=== PATIENT | female | born 1985 | race Caucasian/White ===

== ENCOUNTER 2022-08-13 08:09 | Outpatient (CLI) | payer BC, SELFPAY ==
--- NOTE | 2022-08-13 08:15 | CRLHL7_ITS ---
For Patients: As a result of the Century Cures Act, medical imaging exams and procedure reports are released immediately into your electronic medical record. You may view this report before your referring provider. If you have questions, please contact your health care provider. HISTORY: Ankylosing spondylitis. TECHNIQUE: Noncontrast MRI of the pelvis. COMPARISON: No prior. FINDINGS: Hip joints: No hip joint effusion on either side. The articular surfaces are maintained. No erosions. No capsular edema. - Sacroiliac joints: There is arthrosis of the sacroiliac joints inferiorly with areas of subchondral bone marrow edema and relative widening of the joint spaces which relates to chronic erosive change. There is also some periarticular increased fatty marrow noted on the coronal T1 images. Findings are compatible with chronic sacroiliitis. Changes are noted on axial STIR image 1, series 5 and coronal STIR image 28, series 3. - Osseous structures: No fracture or avascular necrosis. - Musculotendinous structures and bursae: Distal gluteal tendons are intact. No trochanteric bursal fluid collection. Common hamstring tendons are intact. Distal iliopsoas tendons are intact. - Other findings: Mild arthrosis of the pubic symphysis. - Intrapelvic soft tissues: No deep pelvic fluid collection. There are cervical nabothian cysts. No inguinal hernia. IMPRESSION: 1. Bilateral chronic sacroiliitis. 2. Hip joint spaces maintained. 3. No tendon tearing nor bursitis. Dictated by Tc Bryan MD @ 08/14/2022 2:00:46 PM (Electronically Signed)
--- NOTE | 2022-08-13 09:15 | CRLHL7_ITS ---
For Patients: As a result of the Century Cures Act, medical imaging exams and procedure reports are released immediately into your electronic medical record. You may view this report before your referring provider. If you have questions, please contact your health care provider. Indication: Ankylosing spondylitis. Technique: MRI of the cervical spine was performed without the use of intravenous contrast. Comparison: None relevant available. Findings: The vertebral body heights appear maintained without evidence of fracture. No discrete T1 hypointense marrow infiltrating process. The disc space heights appear preserved. Mild reversal to the cervical lordosis. No abnormal cord signal. C2-3: No spinal canal or neural foraminal narrowing. C3-4: No spinal canal or neural foraminal narrowing. C4-5: No spinal canal or neural foraminal narrowing. C5-6: No spinal canal or neural foraminal narrowing. C6-7: Minimal disc bulge without spinal canal or neural foraminal narrowing. C7-T1: No spinal canal or neural foraminal narrowing. Impression: 1. No spinal canal or neural foraminal narrowing. 2. No abnormal cord signal. 3. Mild reversal to the cervical lordosis. Dictated by Jesse Crowell MD @ 08/13/2022 3:31:09 PM (Electronically Signed)
--- NOTE | 2022-08-13 09:15 | CRLHL7_ITS ---
For Patients: As a result of the Century Cures Act, medical imaging exams and procedure reports are released immediately into your electronic medical record. You may view this report before your referring provider. If you have questions, please contact your health care provider. Indication: An closing spondylitis. Technique: Multiplanar, multisequence MRI of the lumbar spine was performed without intravenous contrast. Comparison: None relevant available. Findings: There are 5 lumbar type vertebral segments identified. The vertebral body heights are maintained without evidence of fracture. There is no discrete T1 hypointense marrow infiltrating process. The conus medullaris terminates at T12-L1, normal. Cauda equina appears unremarkable. T12-L1: No spinal canal or neural foraminal stenosis. L1-2: No spinal canal or neural foraminal stenosis. L2-3: No spinal canal or neural foraminal stenosis. L3-4: No spinal canal or neural foraminal stenosis. L4-5: No spinal canal or neural foraminal stenosis. L5-S1: Small right subarticular disc protrusion with annular fissure. Protrusion slightly abuts without compressing the descending right S1 nerve. No neural foraminal narrowing. Impression: At L5-S1, small right subarticular disc protrusion slightly abutting without compressing the descending right S1 nerve. Dictated by Jesse Crowell MD @ 08/13/2022 3:36:03 PM (Electronically Signed)
== END 2022-08-13 08:10 | disposition home or self-care (01) ==
PROVIDERS: PCP Physician Assistant Medical; Visit Provider Internal Medicine Rheumatology
DX: M45.9 Ankylosing spondylitis of unspecified sites in spine (principal); M46.1 Sacroiliitis, not elsewhere classified
CPT/HCPCS: 72141; 72148; 72195

== ENCOUNTER 2022-09-23 15:11 | Outpatient (CLI) | payer BC, SELFPAY ==
--- NOTE | 2022-09-23 15:30 | CRLHL7_ITS ---
For Patients: As a result of the Century Cures Act, medical imaging exams and procedure reports are released immediately into your electronic medical record. You may view this report before your referring provider. If you have questions, please contact your health care provider. INDICATION: Ankylosing spondylitis of multiple sites of the spine. TECHNIQUE: Noncontrast sagittal T1, T2, STIR and axial GRE sequences are provided. No comparisons. FINDINGS: The overall stature, alignment and intrinsic marrow signal of the thoracic spine is within normal limits. Thoracic cord is normal. At T7-8, posterior central disc protrusion extends 5 millimeters beyond the posterior vertebral body margin contacting the ventral cord resulting in no central canal or foraminal narrowing. No other suspicious disc bulges or protrusions. No suspicious central canal or foraminal narrowing. No convincing evidence flowing syndesmophytes seen. IMPRESSION: 1. 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 Dictated by Spedey Brown MD @ 09/23/2022 5:37:51 PM Dictated by: Speedy Brown MD @ 09/23/2022 17:37:56 (Electronically Signed)
== END 2022-09-23 15:12 | disposition home or self-care (01) ==
LOC: MRI 15:12
PROVIDERS: PCP Physician Assistant Medical; Visit Provider Internal Medicine Rheumatology
DX: M45.0 Ankylosing spondylitis of multiple sites in spine (principal); M51.34 Other intervertebral disc degeneration, thoracic region
CPT/HCPCS: 72146

== ENCOUNTER 2023-06-10 11:19 | Outpatient (CLI) | payer BC, SELFPAY | END 2023-06-10 11:20 | disposition home or self-care (01) | PROVIDERS: PCP Physician Assistant Medical; Visit Provider Physician Assistant Medical | DX: Z00.00 Encounter for general adult medical examination without abnormal findings (principal); R53.83 Other fatigue; E66.9 Obesity, unspecified; R03.0 Elevated blood-pressure reading, without diagnosis of hypertension | CPT/HCPCS: 80053; 80061; 82306; 84443; 86258; 86364; 86376; 87086 ==

== ENCOUNTER 2023-08-12 09:42 | Outpatient (CLI) | payer BC, SELFPAY | END 2023-08-12 09:43 | disposition home or self-care (01) | PROVIDERS: PCP Physician Assistant Medical; Visit Provider Physician Assistant Medical | DX: D50.9 Iron deficiency anemia, unspecified (principal); R53.83 Other fatigue; R06.02 Shortness of breath; R60.0 Localized edema | CPT/HCPCS: 82306; 82607; 82728; 82746; 83540; 83550; 83880; 86140 ==

== ENCOUNTER 2023-10-22 09:00 | Outpatient (RCR) | payer BC, SELFPAY ==
--- NOTE | 2023-10-06 10:47 | URNOTE ---
Prior auth is not required for Nikole ([id number]) per [facility](primary) and [employer] [place](secondary), 10/05/2023-01/28/2024.
[2023-10-12 09:45] VITALS: BP 134/83; PULSE 83; RESP 16; TEMP 36.5; O2SAT 97
[2023-10-12] MEDS: IRON SUCROSE COMPLEX 200 MG in 0.9 % SODIUM CHLORIDE 100 ml 100 ML 220 MG IVPB (10:17)
[2023-10-12 10:52] VITALS: BP 136/82; PULSE 74; RESP 16; TEMP 36.7; O2SAT 96
[2023-10-12 11:29] VITALS: BP 139/74; PULSE 75; RESP 16; TEMP 36.9; O2SAT 97
[2023-10-14 09:00] VITALS: BP 140/84; PULSE 85; RESP 16; TEMP 36.1; O2SAT 97
[2023-10-14] MEDS: IRON SUCROSE COMPLEX 200 MG in 0.9 % SODIUM CHLORIDE 100 ml 100 ML 440 MG IVPB (09:25)
[2023-10-14 09:34] VITALS: BP 140/84; PULSE 779; RESP 14; TEMP 37.1; O2SAT 98
[2023-10-14 09:50] VITALS: BP 116/76; PULSE 79; RESP 14; TEMP 36.6; O2SAT 98
[2023-10-14 12:00] VITALS: BP 104/73; PULSE 77; RESP 16; TEMP 36.9; O2SAT 96
[2023-10-14] MEDS: ONDANSETRON 2 MG/ML inj 4 MG IVP (12:20)
[2023-10-14] MEDS: SODIUM CHLORIDE 0.9 % (FLUSH) 10 ML SYRINGE IVF (12:20)
[2023-10-14] MEDS: 0.9 % SODIUM CHLORIDE 250 ml IV (12:20)
--- NOTE | 2023-10-14 13:11 | ONC.NURNOTE ---
patient arrived at 9am. started Iron infusion at 440cc hr. after 10cc pt reports anxious, lightheaded and nausea. vs wnl LS clear Heart reg. Liyah Bay APRN saw pt. 0950 restarted Iron, after vs, at 100cc hr. after 2cc pt reported returnig of symptoms. Liyah Bay APRN saw pt, see asstment. zofran given at 1010 and aroma patch applied with good relief. at 1025 started Iron at 20cc hr. increasing it by 10cc every 10-15 min up to 90cc hr. when finished. pt veronica well and no return of symptoms. drip finished at noon. pt stayed 1/2 . vs wnl. pt left feeling good.
[2023-10-18 12:08] VITALS: BP 128/77; PULSE 77; RESP 16; TEMP 36.6; O2SAT 98
[2023-10-18] MEDS: IRON SUCROSE COMPLEX 200 MG in 0.9 % SODIUM CHLORIDE 100 ml 100 ML 25 MG IVPB (12:29)
[2023-10-18] MEDS: 0.9 % SODIUM CHLORIDE 250 ml IV (12:30)
[2023-10-18] MEDS: SODIUM CHLORIDE 0.9 % (FLUSH) 10 ML SYRINGE IVF (12:30)
[2023-10-18 12:34] VITALS: BP 133/93; PULSE 76; RESP 18; O2SAT 97
[2023-10-18 12:41] VITALS: BP 115/64; PULSE 77; O2SAT 97
[2023-10-18 12:50] VITALS: BP 122/76; PULSE 76; O2SAT 97
[2023-10-18 14:18] VITALS: BP 133/77; PULSE 79; RESP 16; O2SAT 96
--- NOTE | 2023-10-18 14:21 | PC.NURSE ---
Pt present at [facility] today, RN noted reaction with last infusion. Started todays dose at 25 cc per hour. Pt immediately felt generalized tingling and lightheadedness. Liyah Read APRN called to the room. Infusion continued as pt was feeling like the symptoms were quite minor. VS remained stable. After about 10-15 minutes, pt felt back to normal. RN monitored and then increased rate to 50 cc/hour. Summer again noted the feeling of lightheadedness returning. No nausea present. Pt again returned to her baseline after a few minutes at the increased rate. Left the infusion for about 30 minutes and then increased to 80 cc/hour. Pt noted nausea and feeling off again. Infusion completed. Pt managed with deep breathing and trying to relax her body. Support provided. Summer looked back in her [facility] records and noted that she had (and tolerated) Injectafer in 2019 and she had 2-3/5 doses of Venofer in Summer of 2022. Summer will return to [facility] on Wednesday and Wednesday of this week for her last two doses. Will adjust the titration.
[2023-10-18 14:52] VITALS: BP 120/78; PULSE 82; RESP 16; O2SAT 97
[2023-10-20 11:51] VITALS: BP 122/76; PULSE 90; RESP 16; TEMP 36.6; O2SAT 96
[2023-10-20] MEDS: 0.9 % SODIUM CHLORIDE 250 ml IV (12:16)
[2023-10-20] MEDS: SODIUM CHLORIDE 0.9 % (FLUSH) 10 ML SYRINGE IVF (12:16)
[2023-10-20] MEDS: METHYLPREDNISOLONE SOD SUCC 62.5 MG/ML (125) 125 MG IVP (12:16)
[2023-10-20] MEDS: IRON SUCROSE COMPLEX 200 MG in 0.9 % SODIUM CHLORIDE 100 ml 100 ML 25 MG IVPB (13:03)
[2023-10-20 13:28] VITALS: BP 125/85; PULSE 80; RESP 18; O2SAT 96
[2023-10-20 13:38] LABS: Ferritin* 83.4 ng/mL (6.24-137.0)
[2023-10-20 14:54] VITALS: BP 146/80; PULSE 85; RESP 16; TEMP 36; O2SAT 97
--- NOTE | 2023-10-20 15:21 | ONC.NURNOTE ---
Left message for pt that Liyah Read APRN reviewed pt's ferritin level and is aware she tolerated her iron sucrose dose today with being premedicated and Liyah does recommend pt come in for her iron sucrose on Wednesday.
[2023-10-22 08:41] VITALS: BP 132/74; PULSE 86; RESP 16; TEMP 36.4
[2023-10-22] MEDS: METHYLPREDNISOLONE SOD SUCC 62.5 MG/ML (125) 125 MG IVP (09:05)
[2023-10-22] MEDS: SODIUM CHLORIDE 0.9 % (FLUSH) 10 ML SYRINGE IVF (09:06)
[2023-10-22] MEDS: 0.9 % SODIUM CHLORIDE 250 ml IV (09:08)
[2023-10-22] MEDS: IRON SUCROSE COMPLEX 200 MG in 0.9 % SODIUM CHLORIDE 100 ml 100 ML 25 MG IVPB (09:37)
[2023-10-22 09:53] VITALS: BP 132/86; PULSE 76; RESP 18; O2SAT 94
[2023-10-22 10:04] VITALS: BP 143/87; PULSE 79; RESP 18; O2SAT 97
[2023-10-22 10:19] VITALS: BP 127/84; PULSE 70; RESP 18; O2SAT 97
[2023-10-22 11:19] VITALS: BP 131/85; PULSE 77; RESP 18; O2SAT 97
== END 2024-04-09 23:59 | disposition home or self-care (01) ==
LOC: CCIC 09:00
PROVIDERS: PCP Physician Assistant Medical; Referring Provider Physician Assistant Medical; Visit Provider Clinical Nurse Specialist
DX: D50.9 Iron deficiency anemia, unspecified (principal)
CPT/HCPCS: 36415; 82728; 96365; 96366; 96376; 99214; G0463; J1756; J2405; J2919; J7050

== ENCOUNTER 2023-12-09 10:58 | Outpatient (CLI) | payer BC, SELFPAY ==
--- NOTE | 2023-12-09 11:00 | CRLHL7_ITS ---
For Patients: As a result of the Century Cures Act, medical imaging exams and procedure reports are released immediately into your electronic medical record. You may view this report before your referring provider. If you have questions, please contact your health care provider. Indication: dysmenorrhea Technique: Pelvic ultrasound, transabdominal and transvaginal, utilizing grayscale and color Doppler. Comparison: None Findings: The uterus is normal in echogenicity and size measuring 10.4 x 5.8 x 5.3 centimeters. No uterine masses or lesions. The endometrium is at the upper limits of normal in thickness measuring 1.5 centimeters. No endometrial masses or fluid within the endometrial canal. The bilateral ovaries are normal in appearance and size measuring 3.5 x 2.4 x 2.0 centimeters and 4.7 x 2.4 x 3.2 centimeters. There is a simple appearing cyst/dominant follicle associated with the left ovary measuring 2.8 x 2.4 x 1.5 centimeters. There is normal blood flow on color Doppler to the bilateral ovaries. No free fluid. Impression: 1. The endometrium is at the upper limits of normal in size measuring 1.5 centimeters with no endometrial mass or lesion. 2. Simple left ovarian cyst versus dominant follicle measuring 2.8 centimeters. Dictated by Juan Hicks MD @ 12/10/2023 6:31:16 PM (Electronically Signed)
== END 2023-12-09 10:59 | disposition home or self-care (01) ==
LOC: US 10:59
PROVIDERS: PCP Physician Assistant Medical; Visit Provider Physician Assistant
DX: N94.6 Dysmenorrhea, unspecified (principal); N83.202 Unspecified ovarian cyst, left side
CPT/HCPCS: 76830; 76856

== ENCOUNTER 2024-02-14 13:34 | Outpatient (CLI) | payer BC, SELFPAY | END 2024-02-14 13:35 | disposition home or self-care (01) | PROVIDERS: PCP Physician Assistant Medical; Visit Provider Physician Assistant | DX: N92.6 Irregular menstruation, unspecified (principal); E28.2 Polycystic ovarian syndrome; Z30.9 Encounter for contraceptive management, unspecified | CPT/HCPCS: 83498; 84146; 84270; 84402; 84403 ==